=== PATIENT | female | born 1975 | race Caucasian/White ===

== ENCOUNTER → 2024-11-01 14:44 | Outpatient (REF) | payer OTHER, SELFPAY | LOC: RAD 14:44 | PROVIDERS: ATTENDING PHYSICIAN Internal Medicine Rheumatology; FAMILY PHYSICIAN Family Medicine | DX: M46.1 Sacroiliitis, not elsewhere classified (principal); M16.10 Unilateral primary osteoarthritis, unspecified hip | CPT/HCPCS: 72110 ==

== ENCOUNTER → 2025-02-03 12:45 | Outpatient (REF) | payer OTHER, SELFPAY | LOC: HWWDC 12:45 | PROVIDERS: ATTENDING PHYSICIAN Physician Assistant | DX: Z12.31 Encounter for screening mammogram for malignant neoplasm of breast (principal) | CPT/HCPCS: 77063; 77067 ==

== ENCOUNTER → 2025-02-10 14:08 | Outpatient (REF) | payer OTHER, SELFPAY | LOC: HWRAD 14:08 | PROVIDERS: ATTENDING PHYSICIAN Internal Medicine Rheumatology; FAMILY PHYSICIAN Family Medicine | DX: M81.0 Age-related osteoporosis without current pathological fracture (principal) | CPT/HCPCS: 77080 ==